=== PATIENT | male | born 1965 | race Caucasian/White ===

== ENCOUNTER → 2020-02-19 | Outpatient (REF) ==
--- NOTE | 2020-02-19 15:29 | Diagnostic Imaging Report ---
INDICATION: Pain after tripping and fall. TECHNIQUE: Three views of the right knee. CORRELATION STUDY: None. FINDINGS: Joint spaces appear maintained. There is a well-corticated bone fragment adjacent to the medial compartment. Additionally, there is lucency over the superior pole of patella. There is also osteophyte of the patella present. An acute fracture is not suggested. There is presence of suprapatellar joint effusion. IMPRESSION: 1. Negative for acute bony abnormality of the knee. Degenerative change particularly at the patellofemoral compartment. May be previous, more remote injury. Dictated by: Dictated on workstation # [id number]
== END ==
LOC: OCC 14:49
PROVIDERS: ATTEND Nurse Practitioner Family
DX: M25.561 Pain in right knee (principal)
CPT/HCPCS: 73562

== ENCOUNTER → 2020-02-26 | Outpatient (REF) ==
--- NOTE | 2020-02-26 13:26 | Diagnostic Imaging Report ---
MRI RT LOWER EXT JOINT W/O TECHNIQUE: Multiplanar, multisequence MR imaging of the right knee was performed without contrast. COMPARISON: None available. INDICATION: Right knee pain. FINDINGS: MENISCI Medial meniscus: Normal. Lateral meniscus: Potential nondisplaced tear in the anterior horn of the lateral meniscus contacting the undersurface. LIGAMENTS ACL: Intact. PCL: Intact. 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 However, both the proximal origin and distal insertion of the MCL are normal. LCL: The lateral collateral ligamentous complex is intact. EXTENSOR MECHANISM The extensor mechanism is intact. CARTILAGE Medial compartment: Partial thickness chondral thinning in the posterior weightbearing aspect of medial femoral condyle. 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 Patellofemoral compartment: Full-thickness chondral fissuring at the patellar apex. There are also scattered areas of partial and full-thickness chondromalacia in the trochlea. BONE No fracture, stress fracture or osteonecrosis. SOFT TISSUE No knee joint effusion. Small nonruptured Nance's cyst. IMPRESSION: 1. Probable nondisplaced and incomplete horizontal cleavage tear in the anterior horn of the lateral meniscus. 2. 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 3. Old MCL injury which is healed. Dictated by: Dictated on workstation # [id number]
== END ==
LOC: RAD 09:35
PROVIDERS: ATTEND Nurse Practitioner Family
DX: M17.11 Unilateral primary osteoarthritis, right knee (principal)
CPT/HCPCS: 73721